=== PATIENT | female | born 1960 | race Caucasian/White ===

== ENCOUNTER 2019-05-16 21:17 | Inpatient (IN) | payer OTHER ==
[~2019-05-16] VITALS: Ht 157.5 cm; Wt 130.2 kg
[2019-05-16 21:17] VITALS: BP_SYST 91
--- NOTE | 2019-05-16 21:17 | NUR ---
PLACED ON ROOM 01. PLACED ON APPLICATIONS PROJECT MANAGER, BLOOD PRESSURE MACHINE, AND PULSE OXIMETER. TO GOWN FOR EXAM. SIDE RAILS UP.
--- NOTE | 2019-05-16 21:20 | NUR ---
AWAKE, ALERT. PT STATES THAT SHE HAD BEEN HAVING HARD TIME BREATHING X 1 WEEK. BR TX GIVEN EARLIER.
[2019-05-16] MEDS ORDERED: ASPIRIN 81 MG TAB.CHEW PO ONE (21:30)
--- NOTE | 2019-05-16 21:30 | NUR ---
ER Dr.DR PATINO at bedside examining patient.
[2019-05-16] MEDS ORDERED: NACL 0.9% 1,000 ML IV ONE (22:00)
[2019-05-16] MEDS ORDERED: ASPIRIN 81 MG TAB.CHEW ONE (22:14)
[2019-05-16 22:16] LABS: BASOPHILS # (AUTO) 0.1 K/uL (0.0-0.2); BASOPHILS % (AUTO) 1.3 % (0.0-2.0); EOSINOPHILS # (AUTO) 0.2 K/uL (0.0-0.4); EOSINOPHILS % (AUTO) 5.4 % (0.0-4.0); HEMATOCRIT 36.2 % (36-48); HEMOGLOBIN 12.2 g/dL (12.0-16.0); LYMPHOCYTES # (AUTO) 1.2 K/uL (1.0-5.5); LYMPHOCYTES % (AUTO) 28.3 % (20.5-51.5); MEAN CORPUSCULAR HEMOGLOBIN 33 pg (27-31); MEAN CORPUSCULAR HGB CONC 34 % (32-36); MEAN CORPUSCULAR VOLUME 98 fL (79.0-98.0); MONOCYTES # (AUTO) 0.4 K/uL (0.0-1.0); MONOCYTES % (AUTO) 9.9 % (1.7-9.3); NEUTROPHILS # (AUTO) 2.2 K/uL (1.8-7.7); NEUTROPHILS % (AUTO) 55.1 % (40.0-70.0); RED BLOOD CELL COUNT(AUTO) 3.71 MIL/uL (4.2-6.2); RED CELL DISTRIBUTION WIDTH 15.3 % (9.0-15.0); WHITE BLOOD COUNT (AUTO) 4.1 K/uL (4.8-10.8)
[2019-05-16 22:25] LABS: CALCIUM 9.3 mg/dL (8.4-11.0); CREATININE 0.57 mg/dL (0.55-1.30); POTASSIUM 3.5 mmol/L (3.5-5.1)
[2019-05-16 22:27] LABS: INR 1.1 (0.8-1.2); PROTHROMBIN TIME 11.1 SECS (9.5-12.5)
[2019-05-16 22:29] LABS: ALBUMIN 2.8 g/dL (3.4-4.8); TOTAL BILIRUBIN 1.4 mg/dL (0.0-1.0)
[2019-05-16 22:30] LABS: PLATELET COUNT (AUTO) 150 K/uL (130-430)
--- NOTE | 2019-05-16 23:18 | NUR ---
IVF NS started by RN @0530 and completed infusing @1103.
[2019-05-17] MEDS ORDERED: IOHEXOL 350 mgI/mL, 150 ML INFUS..BTL IV ONE (00:24)
[2019-05-17] MEDS ORDERED: INSU100V11 SQ (00:47)
[2019-05-17] MEDS ORDERED: ELA50 PO (00:47)
[2019-05-17] MEDS ORDERED: OXYC60TA8 PO (00:47)
[2019-05-17] MEDS ORDERED: METF1000 PO (00:47)
--- NOTE | 2019-05-17 01:30 | NUR ---
Patient will be admitted to care of DR SANON. Admitted to TELEMETRY Unit. Room no. to follow. Belongings list completed. Summary report printed. Report will be given at bedside.
--- NOTE | 2019-05-17 02:00 | NUR ---
No bed yet given, no nurse at this time available to accept.
[2019-05-17 03:01] LABS: BILIRUBIN,URINE NEGATIVE (NEGATIVE); BLOOD, URINE 1+ (NEGATIVE); CLARITY/URINE CLEAR (CLEAR); COLOR,URINE YELLOW (YELLOW); GLUCOSE,URINE NEGATIVE (NEGATIVE); KETONES,URINE NEGATIVE (NEGATIVE); LEUKOCYTE ESTERASE ,URINE NEGATIVE (NEGATIVE); NITRITE, URINE NEGATIVE (NEGATIVE); PH,URINE 5.5 (5.0-8.0); PROTEIN URINE 2+ (NEGATIVE)
[2019-05-17 03:04] LABS: WBC,URINE 0-3 /HPF (0-3)
[2019-05-17 03:05] LABS: BACTERIA,URINE FEW /HPF (None Seen)
--- NOTE | 2019-05-17 04:00 | NUR ---
Patient will be admitted to care of DR Dobbs. Admitted to telemetry unit. Will go to room 100 B. Belongings list completed. Summary report printed. Report will be given at bedside.
--- NOTE | 2019-05-17 04:11 | NUR ---
ADMISSION NOTE Received patient from ER via nicole, received report from DELANEY MENJIVAR. Patient admitted with diagnosis of COPD, PNEUMONIA. Patient oriented to hospital routine, call light, toileting and safety-patient verbalized understanding.
[2019-05-17 04:18] VITALS: BP_SYST 126
--- NOTE | 2019-05-17 05:00 | NUR ---
REFUSING FOR NURSING STAFF TO REMOVE FOOT SUPPORT Patient has what she states is a "bandage support" that she applied on her left foot. Patient is refusing for nursing staff to remove.
--- NOTE | 2019-05-17 06:22 | NUR ---
CLOSING NOTES All needs met throughout shift. Patient is resting in bed with no s/s of acute distress. Care and bedside report will be endorsed to oncoming day shift nurse.
[2019-05-17] MEDS ORDERED: AZITHROMYCIN 500 MG in NS 250 ML IV SCH (07:15)
[2019-05-17] MEDS ORDERED: INSULIN REGULAR, HUMAN 100 UNITS/ML, 10 ML VIAL (humuLIN R) SUBCUT PRN (07:15)
[2019-05-17] MEDS ORDERED: ALBUTEROL SULFATE 0.083% 2.5 MG/3 ML VIAL.NEB INH PRN (07:15)
[2019-05-17] MEDS ORDERED: ONDANSETRON HCL 4 MG/2 ML VIAL IVP PRN ×2 (07:15→08:45)
[2019-05-17] MEDS ORDERED: cefTRIAXone 1 GM IVPB PREMIX 50 ML IV SCH (07:15)
[2019-05-17] MEDS ORDERED: MORPHINE 2 MG/ML INJ. SYRINGE IVP PRN (07:15)
[2019-05-17 08:11] LABS: BASOPHILS % (AUTO) 0.9 % (0.0-2.0); EOSINOPHILS # (AUTO) 0.2 K/uL (0.0-0.4); EOSINOPHILS % (AUTO) 6.6 % (0.0-4.0); HEMATOCRIT 37.2 % (36-48); HEMOGLOBIN 12.4 g/dL (12.0-16.0); LYMPHOCYTES # (AUTO) 0.8 K/uL (1.0-5.5); LYMPHOCYTES % (AUTO) 22.6 % (20.5-51.5); MEAN CORPUSCULAR HEMOGLOBIN 33 pg (27-31); MEAN CORPUSCULAR HGB CONC 33 % (32-36); MEAN CORPUSCULAR VOLUME 98 fL (79.0-98.0); MONOCYTES # (AUTO) 0.4 K/uL (0.0-1.0); MONOCYTES % (AUTO) 11.3 % (1.7-9.3); NEUTROPHILS # (AUTO) 2.2 K/uL (1.8-7.7); NEUTROPHILS % (AUTO) 58.6 % (40.0-70.0); PLATELET COUNT (AUTO) 103 K/uL (130-430); RED BLOOD CELL COUNT(AUTO) 3.78 MIL/uL (4.2-6.2); RED CELL DISTRIBUTION WIDTH 15.7 % (9.0-15.0); WHITE BLOOD COUNT (AUTO) 3.7 K/uL (4.8-10.8)
[2019-05-17 08:26] VITALS: BP_SYST 126
[2019-05-17 08:29] LABS: ALANINE AMINOTRANSFERASE 24 U/L (12-78); ALBUMIN 2.6 g/dL (3.4-4.8); ASPARTATE AMINOTRANSFERASE 36 U/L (10-37); CALCIUM 8.7 mg/dL (8.4-11.0); CHLORIDE 105 mmol/L (98-107); CREATININE 0.52 mg/dL (0.55-1.30); GLUCOSE 178 mg/dL (70-99); POTASSIUM 3.6 mmol/L (3.5-5.1); SODIUM SERUM 136 mmol/L (136-145); TOTAL BILIRUBIN 1.6 mg/dL (0.0-1.0); UREA NITROGEN, BLOOD 8 mg/dL (8-21)
[2019-05-17 08:30] LABS: ANION GAP < 3 (5-15); GFR AFRICAN AMERICAN 156 mL/min (>90)
[2019-05-17] MEDS ORDERED: ACETAMINOPHEN 325 MG TABLET PO PRN (08:45)
[2019-05-17] MEDS ORDERED: methylPREDNISolone SOD SUCC/PF 62.5 MG/ML VIAL IVP ONE (09:00)
[2019-05-17] MEDS ORDERED: ENOXAPARIN SODIUM 40 MG/0.4 ML SYRINGE SUBCUT SCH (09:00)
[2019-05-17] MEDS ORDERED: LEVOFLOXACIN 500 MG/D5W 100 ML IV SCH (09:00)
[2019-05-17] MEDS ORDERED: AMITRIPTYLINE HCL 25 MG TABLET (ELAVIL) PO SCH (09:00)
[2019-05-17] MEDS ORDERED: FURO-150 PO (10:13)
[2019-05-17] MEDS ORDERED: BUDE6HFA INH (10:14)
[2019-05-17] MEDS ORDERED: ALBU8.5H8 INH (10:22)
[2019-05-17] MEDS ORDERED: MEDROL DOSE PACK (10:23)
[2019-05-17] MEDS ORDERED: Z-PACK (10:24)
[2019-05-17 11:00] VITALS: BP_SYST 132
[2019-05-17] MEDS ORDERED: IPRATROPIUM/ALBUTEROL SULFATE 3 ML AMPUL.NEB (DUONEB) INH SCH (11:00)
[2019-05-17 11:05] VITALS: BP_SYST 106
--- NOTE | 2019-05-17 12:00 | NUR ---
DISCHARGE INSTRUCTIONS GIVEN TO PT WITH NEW RX. EDUCATION MATERIALS GIVEN AND EXPLAINED TO PT. FOR FOLLOW-UP WITH OWN PCP TO BE SEEN IN ONE WEEK. PT VERBALIZED UNDERSTANDING AND PACKET SIGNED BY PT. DISCHARGED TO HOME WITH DAUGHTER PER W/C
--- NOTE | 2019-05-17 12:00 | NUR ---
DISCHARGE INSTRUCTIONS GIVEN TO PT AND RX PRESCRIPTIONS GIVEN TO PT. EDUCATION PACKET CONCERNING MEDICATIONS GIVEN TO PT. PT IS TO FOLLOW-UP WITH PCP IN ONE WEEK. DAUGHTER HERE AND WILL BE TRANSPORTING HER HOME. PT VERBALIZED UNDERSTANDING OF MED PLAN AND OF FOLLOW UP OF CARE DISCHARGED HOME PER W/C
[2019-05-17] MEDS ORDERED: methylPREDNISolone SOD SUCC/PF 62.5 MG/ML VIAL IVP SCH (14:00)
--- NOTE | 2019-06-16 15:20 | NUR ---
Discharge Follow Up Call: SS attempted to phone pt on 06/03 and left voicemail but no call back received. No further call needed at this time.
== END 2019-05-17 12:00 | disposition home or self-care (01) | DRG 190 ==
LOC: SED 21:17 → STU 05-17 01:34
PROVIDERS: ADMIT Internal Medicine Hospice and Palliative Medicine; ATTEND Internal Medicine Hospice and Palliative Medicine
DX: J44.0 Chronic obstructive pulmonary disease with (acute) lower respiratory infection (principal); J18.9 Pneumonia, unspecified organism; E11.9 Type 2 diabetes mellitus without complications; J44.1 Chronic obstructive pulmonary disease with (acute) exacerbation; I50.9 Heart failure, unspecified; Z82.49 Family history of ischemic heart disease and other diseases of the circulatory system; Z87.891 Personal history of nicotine dependence; Z88.0 Allergy status to penicillin; Z79.899 Other long term (current) drug therapy
CPT/HCPCS: 36415; 71045; 71275; 80053; 81000-TC; 82550-TC; 82962; 83605; 83880; 84484; 85025; 85379; 85610-TC; 85730-TC; 87040-TC; 93005; 93970; 94640; 94760; 99285; G0378; J1650; J1956; J2930; J7613; J7620; Q9967